=== PATIENT | female | born 1980 | race Caucasian/White ===

== ENCOUNTER 2016-11-25 18:55 | Inpatient (IN) | payer OTHER ==
[2016-11-25] MEDS ORDERED: SODIUM CHLORIDE 0.9% 1,000 ML IV STA ×2 (19:47)
[2016-11-25] MEDS ORDERED: LEVALBUTEROL NEB 1.25 MG/3 ML AMP INHALATION STA (19:47)
[2016-11-25] MEDS ORDERED: methylPREDNISolone SOD SUCCI 125 MG/2 ML VIAL IV STA (19:47)
[2016-11-25] MEDS ORDERED: LEVOFLOXACIN 750MG-D5W PMX 750 MG in DEXTROSE/WATER 1 150ML.BAG IVPB STA (19:47)
[2016-11-25] MEDS ORDERED: IPRATROPIUM 0.5 MG/2.5 ML NEBU INHALATION STA (19:47)
--- NOTE | 2016-11-25 19:53 | ED ---
URI HPI - General Source: patient Mode of arrival: ambulatory Limitations: no limitations <Jose Melendez - Last Filed: 11/25/16 21:42> <Leander Trejo - Last Filed: 11/25/16 22:28> - General Chief Complaint: Upper Respiratory Infection Stated Complaint: LEIGH Time Seen by Provider: 11/25/16 19:43 - History of Present Illness Initial Comments: This 36-year-old white female presents with a complaint of some shortness of breath and cough. This is been present for over 10 days. She denies any actual fever but has had cold sweats. She denies any production with her cough. She normally utilizes tobacco but states that she quit when her current symptoms started. She denies any history of asthma or COPD but has had pneumonia previously. She denies any leg pain or swelling. She does complain of occasional anterior sternal chest pain with cough only. She saw her primary doctor approximately 10 days ago and was placed on an antibiotic as well as some steroid medication. She also was utilizing albuterol breathing treatments 4 times a day. She denies any relief of her symptomatology with this treatment. No other complaints or modifying factors. She does relate that she has a history of factor V Leiden deficiency. (Jose Melendez) - Related Data Home Medications Medication Instructions Recorded Confirmed Albuterol Inhaler [Ventolin Hfa 1 - 2 puff INHALATION RT-Q6H PRN 11/25/16 Inhaler] Albuterol Nebulized [Ventolin 2.5 mg INHALATION RT-TID 11/25/16 11/25/16 Nebulized] Allergies Allergy/AdvReac Type Severity Reaction Status Date / Time Penicillins Allergy Anaphylaxis Verified 11/25/16 19:59 Review of Systems ROS Other: All systems not noted in ROS Statement are negative. <Jose Melendez - Last Filed: 11/25/16 21:42> ROS Other: All systems not noted in ROS Statement are negative. <Leander Trejo - Last Filed: 11/25/16 22:28> ROS Statement: Those systems with pertinent positive or pertinent negative responses have been documented in the HPI. Past Medical History Past Medical History: No Reported History History of Any Multi-Drug Resistant Organisms: None Reported Past Surgical History: Appendectomy, Section, Cholecystectomy Past Psychological History: Anxiety, Panic Disorder Smoking Status: Never smoker Past Alcohol Use History: None Reported Past Drug Use History: None Reported <Jose Melendez - Last Filed: 11/25/16 21:42> General Exam Limitations: no limitations <Jose Melendez - Last Filed: 11/25/16 21:42> <Leander Trejo - Last Filed: 11/25/16 22:28> - General Exam Comments Initial Comments: GENERAL: The patient is well nourished and well hydrated. VITAL SIGNS: Heart rate, blood pressure, respiratory rate reviewed as recorded in nurse's notes. EYES: Pupils are round and reactive. Extraocular movements are intact. No conjunctival / lid redness or swelling. ENT: No external evidence of injury, swelling, or ecchymosis. Airway is patent. Throat is clear. NECK: Nontender. No swelling or evidence of injury. No subcutaneous emphysema. Trachea is midline. No thyroid mass. HEART: Regular rate and rhythm. Good peripheral pulses. LUNGS/CHEST: Frequent cough is noted. Occasional wheezing is noted. No ecchymosis, subcutaneous emphysema, or tenderness. ABDOMEN: Abdomen soft without tenderness. No palpable masses or organomegaly. No peritoneal signs. No abdominal wall swelling or ecchymosis. EXTREMITIES: No extremity tenderness. Normal muscle tone and function. No thoracolumbar tenderness. No leg pain or swelling. NEUROLOGIC: Sensation is grossly intact. Cranial nerve exam reveals face is symmetrical, tongue is midline, speech is clear. SKIN: No abrasions or ecchymosis is noted. No induration or masses noted. PSYCHIATRIC: Alert and oriented. Appropriate behavior and judgment. (Jose Melendez) Medical Decision Making - Lab Data Result diagrams: 11/25/16 20:10 11/25/16 20:10 <Jose Melendez - Last Filed: 11/25/16 21:42> - Lab Data Result diagrams: 11/25/16 20:10 11/25/16 20:10 <Leander Trejo - Last Filed: 11/25/16 22:28> - Medical Decision Making The patient was seen and examined. All diagnostics were reviewed. The EKG shows a sinus tachycardia at a heart rate of 111. There is no acute ST T-wave changes identified. The AL interval is 168, QRS duration is 96, the QTC intervals 456. The laboratory is reviewed and does show a leukocytosis and elevation of the d-dimer. The chest x-ray does not show any acute process. She receives a double Xopenex and Atrovent breathing treatment with some moderate relief. She also received some Solu-Medrol intravenously. She feels improved on recheck. The CT angiogram of the chest is ordered due to the possibility of pulmonary embolism. This is currently pending and final disposition will be passed off to oncoming shift. At this point, it is felt as though the possibility of a pulmonary embolism certainly is plausible as she does have some tachycardia, chest pain, and shortness breath. However, it appears that she does have a degree of bronchospasm and leukocytosis and it is likely possible that she has a bronchitis. (Jose Melendez) - Lab Data Lab Results 11/25/16 11/25/16 11/25/16 Range/Units 20:10 20:10 20:10 WBC 21.0 H (3.8-10.6) k/uL RBC 4.32 (3.80-5.40) m/uL Hgb 14.3 (11.4-16.0) gm/dL Hct 39.9 (34.0-46.0) % MCV 92.4 (80.0-100.0) fL MCH 33.1 (25.0-35.0) pg MCHC 35.8 (31.0-37.0) g/dL RDW 13.7 (11.5-15.5) % Plt Count 341 (150-450) k/uL Neutrophils % 60 % Lymphocytes % 33 % Monocytes % 4 % Eosinophils % 1 % Basophils % 1 % Neutrophils # 12.7 H (1.3-7.7) k/uL Lymphocytes # 7.0 H (1.0-4.8) k/uL Monocytes # 0.8 (0-1.0) k/uL Eosinophils # 0.3 (0-0.7) k/uL Basophils # 0.1 (0-0.2) k/uL Polychromasia Present D-Dimer 0.76 H (<0.60) mg/L FEU Sodium 138 (137-145) mmol/L Potassium 3.9 (3.5-5.1) mmol/L Chloride 106 (98-107) mmol/L Carbon Dioxide 21 L (22-30) mmol/L Anion Gap 11 mmol/L BUN 9 (7-17) mg/dL Creatinine 0.61 (0.52-1.04) mg/dL Est GFR (MDRD) Af Amer >60 (>60 ml/min/1.73 sqM) Est GFR (MDRD) Non-Af >60 (>60 ml/min/1.73 sqM) Glucose 149 H (74-99) mg/dL Calcium 9.7 (8.4-10.2) mg/dL Total Bilirubin 0.4 (0.2-1.3) mg/dL AST 17 (14-36) U/L ALT 33 (9-52) U/L Alkaline Phosphatase 79 (38-126) U/L Total Protein 7.5 (6.3-8.2) g/dL Albumin 4.3 (3.5-5.0) g/dL Disposition <Jose Melendez - Last Filed: 11/25/16 21:42> <Leander Trejo - Last Filed: 11/25/16 22:28> Clinical Impression: Dyspnea, Bronchitis, Bronchospasm, Tachycardia, Chest pain, Elevated d-dimer, Leukocytosis, Pulmonary embolism, Factor V Leiden Disposition: ADMITTED IP TO THIS HOSP Condition: Fair Referrals: Clair Garcia MD [Primary Care Provider] - 1-2 days
[2016-11-25 20:37] LABS: ALT 33 U/L (9-52); AST 17 U/L (14-36); Alkaline Phosphatase 79 U/L (38-126); Anion Gap 11 mmol/L; Basophils # (A) 0.1 k/uL (0-0.2); Basophils % (A) 1 %; Blood Urea Nitrogen 9 mg/dL (7-17); CH 32.3; CHCM 35.1; Calcium 9.7 mg/dL (8.4-10.2); Carbon Dioxide 21 mmol/L (22-30); Chloride 106 mmol/L (98-107); Eosinophils # (A) 0.3 k/uL (0-0.7); Eosinophils % (A) 1 %; Glucose 149 mg/dL (74-99); HCT 39.9 % (34.0-46.0); HDW 2.62; HGB 14.3 gm/dL (11.4-16.0); Luc # (Auto) 0.24; Luc % (Auto) 1; Lymphocytes % (A) 33 %; MCH 33.1 pg (25.0-35.0); MCHC 35.8 g/dL (31.0-37.0); MCV 92.4 fL (80.0-100.0); Mean Platelet Volume 7.4; Monocytes # (A) 0.8 k/uL (0-1.0); Monocytes % (A) 4 %; Neutrophils # (A) 12.7 k/uL (1.3-7.7); Neutrophils % (A) 60 %; Non-African American GFR(MDRD) >60 (>60 ml/min/1.73 sqM); Potassium 3.9 mmol/L (3.5-5.1); RBC 4.32 m/uL (3.80-5.40); RDW 13.7 % (11.5-15.5); Sodium 138 mmol/L (137-145); Total Bilirubin 0.4 mg/dL (0.2-1.3); Total Protein 7.5 g/dL (6.3-8.2); WBC (Perox) 21.07
[2016-11-25 21:02] LABS: Polychromasia Present
--- NOTE | 2016-11-25 21:08 | XR ---
EXAMINATION TYPE: XR chest 2V DATE OF EXAM: 11/25/2016 COMPARISON: 03/21/2015 HISTORY: Shortness of breath TECHNIQUE: Frontal and lateral views of the chest are obtained. FINDINGS: There is no focal air space opacity, pleural effusion, or pneumothorax seen. The cardiac silhouette size is within normal limits. The osseous structures are intact. Previously seen left pe rihilar consolidation has resolved. Cholecystectomy clips are again noted in the right upper quadrant . IMPRESSION: No acute cardiopulmonary process.
[2016-11-25] MEDS ORDERED: RX INFO: IV CONTRAST WAS GIVEN 1 EACH MISC MISCELLANE PRN (21:41)
[2016-11-25] MEDS ORDERED: MORPHINE SULFATE 4 MG/ML SYRINGE IV PRN (22:26)
[2016-11-25] MEDS ORDERED: NITROGLYCERIN SL TABS 0.4 MG TAB SUBLINGUAL PRN (22:26)
[2016-11-25] MEDS ORDERED: HEPARIN SODIUM,PORCINE 5,000 UNIT/ML 1 ML VIAL IV PRN (22:27)
[2016-11-25] MEDS ORDERED: HEPARIN SODIUM,PORCINE 10,000 UNIT/ML 1 ML VIAL IV ONE (22:27)
--- NOTE | 2016-11-25 22:31 | CT ---
EXAM: CT Angiography Chest With Intravenous Contrast CLINICAL HISTORY: Reason: CP and SOB TECHNIQUE: Axial computed tomographic angiography images of the chest with intravenous contrast using pulmonary embolism protocol. DLP is 463.50 mGy-cm. This CT exam was performed using one or more of the following dose reduction techniques: automated exposure control, adjustment of the mA and/or kV according to patient size, and/or use of iterative reconstruction technique. MIP reconstructed images were created and reviewed. COMPARISON: Chest x-ray from earlier the same day. FINDINGS: Suboptimal bolus timing results in suboptimal opacification of the pulmonary arterial system, which limits evaluation. Pulmonary arteries: Within this limitation, a filling defect is seen within a segmental pulmonary artery supplying the left lower lobe extending into a subsegmental artery (as seen on series 4, image 65). This finding likely represents a pulmonary embolism. Somewhat mosaic attenuation of the left lower lobe is seen, more so when compared to the right lower lobe, which can be seen in occlusive vascular disease. Alternatively, this may represent air trapping. Aorta: No acute findings. No thoracic aortic aneurysm. Lungs: See above. No consolidations. Mild linear atelectatic changes are seen throughout both lungs. Pleural space: Unremarkable. No significant effusion. No pneumothorax. Heart: Unremarkable. No cardiomegaly. No significant pericardial effusion. No evidence of RV dysfunction. Bones/joints: No acute fracture. No dislocation. Soft tissues: Unremarkable. Lymph nodes: Unremarkable. No enlarged lymph nodes. Gallbladder and bile ducts: Patient status post cholecystectomy. IMPRESSION: 1. Filling defect within a segmental pulmonary artery supplying the left lower lobe extending into a subsegmental artery. This finding likely represents a pulmonary embolism. 2. Somewhat mosaic attenuation of the left lower, more so when compared to the right lower lobe, which can be seen in occlusive vascular disease. Alternatively, this may represent air trapping. [employer] 11/25/16 22:23 Call Doctor Regarding Pulmonary Embolism, called Dr. Goodwin on 11/25 22:22 (-04:00)
[2016-11-25] MEDS: HEPARIN SODIUM,PORCINE/D5W PMX 25,000 UNIT in DEXTROSE/WATER 1 500ML.BAG IV SCH (22:52)
[2016-11-26 00:01] VITALS: RESP 18; BMI 38.9
[2016-11-26 00:29] LABS: Creatine Kinase 51 U/L (30-135)
[2016-11-26] MEDS ORDERED: ACETAMINOPHEN TAB 325 MG TAB PO PRN (00:30)
[2016-11-26 00:42] LABS: Creatine Kinase MB <0.2 ng/mL (0.0-2.4); Troponin I <0.012 ng/mL (0.000-0.034)
[2016-11-26 04:50] LABS: Basophils % (A) 0 %; CH 33.1; CHCM 34.4; Eosinophils # (A) 0.1 k/uL (0-0.7); Eosinophils % (A) 0 %; HCT 41.8 % (34.0-46.0); HDW 2.59; HGB 14.1 gm/dL (11.4-16.0); Luc # (Auto) 0.05; Luc % (Auto) 0; Lymphocytes # (A) 2.3 k/uL (1.0-4.8); Lymphocytes % (A) 12 %; MCH 32.6 pg (25.0-35.0); MCHC 33.7 g/dL (31.0-37.0); MCV 96.8 fL (80.0-100.0); Mean Platelet Volume 7.7; Monocytes # (A) 0.2 k/uL (0-1.0); Monocytes % (A) 1 %; Neutrophils # (A) 16.8 k/uL (1.3-7.7); Neutrophils % (A) 86 %; RBC 4.32 m/uL (3.80-5.40); RDW 14.6 % (11.5-15.5); WBC 19.5 k/uL (3.8-10.6)
[2016-11-26 05:01] LABS: Partial Thromboplastin Time 70.6 sec (22.0-30.0); Prothrombin Time 10.4 sec (9.0-12.0)
[2016-11-26 05:13] LABS: Creatine Kinase 52 U/L (30-135)
[2016-11-26 05:24] LABS: Cholesterol 231 mg/dL (<200); HDL Cholesterol 44 mg/dL (40-60)
[2016-11-26 05:26] LABS: Creatine Kinase MB 0.3 ng/mL (0.0-2.4); Troponin I <0.012 ng/mL (0.000-0.034)
--- NOTE | 2016-11-26 08:30 | US ---
EXAMINATION TYPE: US venous doppler duplex LE DATE OF EXAM: 11/26/2016 7:52 AM COMPARISON: NONE CLINICAL HISTORY: DVT. Wheezing SIDE PERFORMED: Bilateral TECHNIQUE: The lower extremity deep venous system is examined utilizing real time linear array sonog russell with graded compression, doppler sonography and color-flow sonography. VESSELS IMAGED: External Iliac Vein (EIV) Common Femoral Vein Deep Femoral Vein Greater Saphenous Vein * Femoral Vein Popliteal Vein Small Saphenous Vein * Proximal Calf Veins (* superficial vessels) Right Leg: Negative for DVT Left Leg: Negative for DVT IMPRESSION: 1. No diagnostic evidence of DVT.
[2016-11-26] MEDS: HEPARIN SODIUM,PORCINE/D5W PMX 25,000 UNIT in DEXTROSE/WATER 1 500ML.BAG IV SCH (11:32)
--- NOTE | 2016-11-26 12:39 | P.HPIM ---
History of Present Illness 36-year-old pleasant female came in with complaints of shortness of breath denied any chest pain. Patient had history of asthma still smokes and patient was wheezing quite a bit. Patient the at the took antibiotics and the for 5 days that his azithromycin and also systemic steroids as an outpatient which did not help her because of which patient came to ER. And patient had a CAT scan of the chest which showed some questionable pulmonary embolism. I reviewed the CAT scan which is not impressive for pulmonary embolism because of which I'm consulted pulmonary for the second opinion. I believe patient has asthma exacerbation for which patient can be discharged on systemic steroids. Regarding her asthma exacerbation of symptoms significantly improved patient is comparing of cough without any sputum production. Patient still has minimal wheeze upon exam. If per neurology believes patient had a pulmonary embolism patient will be discharged on Xarelto patient does have history of factor V Leyden deficiency. Patient denied any recent surgery or any cancer. Review of Systems REVIEW OF SYSTEMS: CONSTITUTIONAL: No fever, no malaise, no fatigue. HEENT: No recent visual problems or hearing problems. Denied any sore throat. CARDIOVASCULAR: No chest pain, orthopnea, PND, no palpitations, no syncope. PULMONARY: As mentioned in HPI GASTROINTESTINAL: No diarrhea, no nausea, no vomiting, no abdominal pain. Normoactive bowel sounds. NEUROLOGICAL: No headaches, no weakness, no numbness. HEMATOLOGICAL: Denies any bleeding or petechiae. GENITOURINARY: Denies any burning micturition, frequency, or urgency. MUSCULOSKELETAL/RHEUMATOLOGICAL: Denies any joint pain, swelling, or any muscle pain. ENDOCRINE: Denies any polyuria or polydipsia. The rest of the 14-point review of systems is negative. Past Medical History Past Medical History: No Reported History History of Any Multi-Drug Resistant Organisms: None Reported Past Surgical History: Appendectomy, Section, Cholecystectomy Past Anesthesia/Blood Transfusion Reactions: No Reported Reaction Past Psychological History: Anxiety, Panic Disorder Smoking Status: Former smoker Past Alcohol Use History: None Reported Past Drug Use History: None Reported - Past Family History Mother Family Medical History: Diabetes Mellitus, Deep Vein Thrombosis (DVT), Hypertension, Pulmonary Embolus Father History Unknown: Yes Medications and Allergies Home Medications Medication Instructions Recorded Confirmed Type Albuterol Inhaler [Ventolin Hfa 1 - 2 puff INHALATION RT-Q6H PRN 11/25/16 History Inhaler] Albuterol Nebulized [Ventolin 2.5 mg INHALATION RT-TID 11/25/16 11/25/16 History Nebulized] Ranitidine HCl [Zantac] 150 mg PO BID #20 tab 11/26/16 Rx predniSONE 10 mg PO DAILY #30 tab 11/26/16 Rx Allergies Allergy/AdvReac Type Severity Reaction Status Date / Time Penicillins Allergy Anaphylaxis Verified 11/25/16 19:59 Physical Exam Vitals: Vital Signs Temp Pulse Pulse Pulse Resp BP BP 11/26/16 12:12 97.8 F 97 101 H 16 120/75 11/26/16 08:27 97.7 F 99 101 H 16 133/75 11/26/16 03:06 98.4 F 101 H 18 127/73 11/26/16 00:00 18 11/25/16 23:20 98.2 F 107 H 18 131/77 11/25/16 22:54 98.3 F 120 H 16 147/78 11/25/16 21:42 112 H 18 137/79 11/25/16 20:32 114 H 11/25/16 20:17 114 H 11/25/16 20:16 114 H 11/25/16 20:06 117 H 11/25/16 19:23 20 11/25/16 19:11 97.9 F 120 H 20 138/90 Pulse Ox 11/26/16 12:12 94 L 11/26/16 08:27 97 11/26/16 03:06 95 11/26/16 00:00 11/25/16 23:20 97 11/25/16 22:54 94 L 11/25/16 21:42 98 11/25/16 20:32 11/25/16 20:17 11/25/16 20:16 11/25/16 20:06 11/25/16 19:23 11/25/16 19:11 95 Intake and Output 11/25/16 11/26/16 11/26/16 22:59 06:59 14:59 Intake Total 984.677 338.309 Balance 984.677 338.309 Intake: Intake, IV Titration 984.677 220.309 Amount Heparin Sodium,Porcine/ 234.677 220.309 D5w Pmx 25,000 unit In Dextrose/Water 1 500ml. bag @ 18 UNITS/KG/HR 35. 92 mls/hr IV .[id number] ROSE Rx#:[id number] Levofloxacin 750Mg-D5w 150 Pmx 750 mg In Dextrose/ Water 1 150ml.bag @ 100 mls/hr IVPB ONCE STA Rx#: [id number] Sodium Chloride 0.9% 1, 600 000 ml @ 100 mls/hr IV . Q10H STA Rx#:[id number] Oral 118 Other: # Voids 2 Weight 99.79 kg 100.9 kg PHYSICAL EXAMINATION: GENERAL: The patient is alert and oriented x3, not in any acute distress. Well developed, well nourished. HEENT: Pupils are round and equally reacting to light. EOMI. No scleral icterus. No conjunctival pallor. Normocephalic, atraumatic. No pharyngeal erythema. No thyromegaly. CARDIOVASCULAR: S1 and S2 present. No murmurs, rubs, or gallops. PULMONARY: Minimal expiratory wheezing was appreciated no crackles are appreciated. ABDOMEN: Soft, nontender, nondistended, normoactive bowel sounds. No palpable organomegaly. MUSCULOSKELETAL: No joint swelling or deformity. EXTREMITIES: No cyanosis, clubbing, or pedal edema. NEUROLOGICAL: Gross neurological examination did not reveal any focal deficits. SKIN: No rashes. Results CBC & Chem 7: 11/26/16 04:39 11/25/16 20:10 Labs: Abnormal Lab Results - Last 24 Hours (Table) 11/25/16 11/25/16 11/25/16 Range/Units 20:10 20:10 20:10 WBC 21.0 H (3.8-10.6) k/uL Neutrophils # 12.7 H (1.3-7.7) k/uL Lymphocytes # 7.0 H (1.0-4.8) k/uL APTT (22.0-30.0) sec D-Dimer 0.76 H (<0.60) mg/L FEU Carbon Dioxide 21 L (22-30) mmol/L Glucose 149 H (74-99) mg/dL Triglycerides (<150) mg/dL Cholesterol (<200) mg/dL LDL Cholesterol, Calc (0-99) mg/dL 11/26/16 11/26/16 11/26/16 Range/Units 04:39 04:39 04:39 WBC 19.5 H (3.8-10.6) k/uL Neutrophils # 16.8 H (1.3-7.7) k/uL Lymphocytes # (1.0-4.8) k/uL APTT 70.6 H (22.0-30.0) sec D-Dimer (<0.60) mg/L FEU Carbon Dioxide (22-30) mmol/L Glucose (74-99) mg/dL Triglycerides 251 H (<150) mg/dL Cholesterol 231 H (<200) mg/dL LDL Cholesterol, Calc 137 H (0-99) mg/dL Thrombosis Risk Factor Assmnt - Choose All That Apply Any of the Below Risk Factors Present?: Yes Each Factor Represents 1 point: Medical pt on bed rest, Obesity (BMI >25) Other Risk Factors: Yes Each Risk Factor Represents 3 Points: Family history of DVT/PE Thrombosis Risk Factor Assessment Total Risk Factor Score: 5 Thrombosis Risk Factor Assessment Level: High Risk Assessment and Plan Plan: #1 acute hypoxic respiratory failure: Secondary to acute asthma exacerbation patient probably has chronic intermittent asthma. Regarding her pulmonary embolism evaluation further management as mentioned in the HPI. #2 tachycardia: Secondary to hypoxemia which improved with treatment of asthma. #3 leukocytosis secondary to systemic strides she was receiving as an outpatient. 4 hypertriglyceridemia and hyperlipidemia: Patient will be started on statin at counseling was provided. #5 factor V Leyden deficiency: Follow-up with oncology as an outpatient.
--- NOTE | 2016-11-26 12:47 | P.DS ---
Providers Date of admission: 11/25/16 22:26 Attending physician: Arnoldo Bullock Consults: 11/26/16 11:11 Consult Physician Routine Consulting Provider: Jenn Starks Consult Reason/Comments: PE Do you want consulting provider notified?: Yes Primary care physician: Clair Garcia Hospital Course: Please refer to my HPI Patient Condition at Discharge: Fair Plan - Discharge Summary New Discharge Prescriptions: New predniSONE 10 mg PO DAILY #30 tab Ranitidine HCl [Zantac] 150 mg PO BID #20 tab Atorvastatin Calcium [Lipitor] 40 mg PO ACHS #30 tablet No Action Albuterol Nebulized [Ventolin Nebulized] 2.5 mg INHALATION RT-TID Albuterol Inhaler [Ventolin Hfa Inhaler] 1 - 2 puff INHALATION RT-Q6H PRN PRN Reason: Shortness Of Breath Discharge Medication List Albuterol Inhaler [Ventolin Hfa Inhaler] 1 - 2 puff INHALATION RT-Q6H PRN [History] Albuterol Nebulized [Ventolin Nebulized] 2.5 mg INHALATION RT-TID 11/25/16 [ History] Atorvastatin Calcium [Lipitor] 40 mg PO ACHS #30 tablet 11/26/16 [Rx] Ranitidine HCl [Zantac] 150 mg PO BID #20 tab 11/26/16 [Rx] predniSONE 10 mg PO DAILY #30 tab 11/26/16 [Rx] Follow up Appointment(s)/Referral(s): Clair Garcia MD [Primary Care Provider] - 3 Days Discharge Disposition: HOME SELF-CARE
--- NOTE | 2016-11-26 18:48 | ECHOF ---
Referral Reason:pe MEASUREMENTS -------- HEIGHT: 160.0 cm WEIGHT: 100.7 kg BP: 127/73 RVIDd: 2.6 cm (< 3.3) IVSd: 1.2 cm (0.6 - 1.1) LVIDd: 4.2 cm (3.9 - 5.3) LVPWd: 1.1 cm (0.6 - 1.1) IVSs: 1.4 cm LVIDs: 3.1 cm LVPWs: 1.4 cm LAESV Index (A-L): 15.13 ml/m Ao Diam: 3.0 cm (2.0 - 3.7) AV Cusp: 2.2 cm (1.5 - 2.6) MV EXCURSION: 20.586 mm (> 18.000) MV EF SLOPE: 132 mm/s (70 - 150) EPSS: 0.5 cm MV E Moses: 1.01 m/s MV DecT: 254 ms MV A Moses: 0.87 m/s MV E/A Ratio: 1.17 RAP: 5.00 mmHg RVSP: 20.18 mmHg FINDINGS -------- Resting tachycardia (HR>100bpm). This was a technically good study. The left ventricular size is normal. There is borderline concentric left ventricular hypertrophy. Overall left ventricular systolic function is normal with, an EF between 60 - 65 %. The right ventricle is normal in size. Normal LA size by volume 22+/-6 ml/m2. The right atrium is normal in size. The aortic valve is trileaflet and appears structurally normal. The mitral valve leaflets are mildly thickened. The tricuspid valve appears structurally normal. Trace tricuspid regurgitation present. Right ventricular systolic pressure is normal at < 35 mmHg. The pulmonic valve is normal. The aortic root size is normal. IVC Not well visulized. There is no pericardial effusion. CONCLUSIONS -------- 1. Resting tachycardia (HR>100bpm). 2. The mitral valve leaflets are mildly thickened. 3. The tricuspid valve appears structurally normal. 4. Trace tricuspid regurgitation present. 5. Right ventricular systolic pressure is normal at < 35 mmHg. 6. The pulmonic valve is normal. 7. The aortic root size is normal. 8. IVC Not well visulized. 9. There is no pericardial effusion. 10. This was a technically good study. 11. The left ventricular size is normal. 12. There is borderline concentric left ventricular hypertrophy. 13. Overall left ventricular systolic function is normal with, an EF between 60 - 65 %. 14. The right ventricle is normal in size. 15. Normal LA size by volume 22+/-6 ml/m2. 16. The right atrium is normal in size. 17. The aortic valve is trileaflet and appears structurally normal. [employer] PROFESSOR: Nandini Gunderson RDCS
[2016-11-27] MEDS: HEPARIN SODIUM,PORCINE/D5W PMX 25,000 UNIT in DEXTROSE/WATER 1 500ML.BAG IV SCH (02:34)
[2016-11-27 05:34] VITALS: PULSE 88
[2016-11-27 06:43] LABS: CH 32.9; CHCM 34.2; HCT 37.7 % (34.0-46.0); HDW 2.61; HGB 12.7 gm/dL (11.4-16.0); INR 0.9 (<1.2); MCH 32.6 pg (25.0-35.0); MCHC 33.7 g/dL (31.0-37.0); MCV 96.7 fL (80.0-100.0); Mean Platelet Volume 8.2; Partial Thromboplastin Time 71.7 sec (22.0-30.0); Prothrombin Time 9.7 sec (9.0-12.0); RDW 14.4 % (11.5-15.5); WBC 20.1 k/uL (3.8-10.6)
[2016-11-27 08:33] LABS: Add Differential Manual Differential
[2016-11-27 08:37] LABS: Nucleated Red Blood Cells 0 /100 WBC (0-0)
[2016-11-27 08:43] LABS: Total Cells Counted 100
[2016-11-27] MEDS ORDERED: RX INFO: IV CONTRAST WAS GIVEN 1 EACH MISC MISCELLANE PRN (09:20)
[2016-11-27 10:13] LABS: Anion Gap 11 mmol/L; Blood Urea Nitrogen 8 mg/dL (7-17); Calcium 8.6 mg/dL (8.4-10.2); Carbon Dioxide 21 mmol/L (22-30); Chloride 108 mmol/L (98-107); Glucose 132 mg/dL (74-99); Non-African American GFR(MDRD) >60 (>60 ml/min/1.73 sqM); Potassium 3.8 mmol/L (3.5-5.1); Sodium 140 mmol/L (137-145)
[2016-11-27 10:40] LABS: Manual Review Performed
[2016-11-27 10:42] LABS: RBC Morphology Normal
--- NOTE | 2016-11-27 11:01 | P.CNPUL ---
History of Present Illness Consult date: 11/27/16 Reason for consult: dyspnea History of present illness: A 36-year-old female patient, known history of factor V Leyden, heterozygous state, coming in for some increased shortness of breath, cough and chest congestion. She is a chronic smoker in she has episodes of bronchitis pH she saw her primary care physician for increased cough and congestion and some wheezing. She was not improving and she had already received Zithromax on outpatient basis along with some systemic steroids. Her primary care physician advised the patient coming into the hospital. CAT scan of the chest was done and this was a CTA protocol which was of a poor contrast. The report came back as positive for pulmonary embolism to the left lower lobe pulmonary artery branches. However, clinically patient's presentation was not consistent. D- dimer was nonelevated. Doppler of the lower extremities was negative. Echocardiogram showed no significant pulmonary hypertension. No hemoptysis. No pleurisy. She was started on IV heparin. Primary consultation was requested. The patient has never had any personal history of PE. She has seen Dr. Monahan from hematology regarding affective 5 Leyden and she was reassured that she did not require any anticoagulation the past knowing that she did not have any events. No recent surgeries. No history of any malignancy. She is obese however she is quite active. Review of Systems REVIEW OF SYSTEMS: CONSTITUTIONAL: No fever, no malaise, no fatigue. HEENT: No recent visual problems or hearing problems. Denied any sore throat. CARDIOVASCULAR: No chest pain, orthopnea, PND, no palpitations, no syncope. PULMONARY: As mentioned in HPI GASTROINTESTINAL: No diarrhea, no nausea, no vomiting, no abdominal pain. Normoactive bowel sounds. NEUROLOGICAL: No headaches, no weakness, no numbness. HEMATOLOGICAL: Denies any bleeding or petechiae. GENITOURINARY: Denies any burning micturition, frequency, or urgency. MUSCULOSKELETAL/RHEUMATOLOGICAL: Denies any joint pain, swelling, or any muscle pain. ENDOCRINE: Denies any polyuria or polydipsia. The rest of the 14-point review of systems is negative. Past Medical History Past Medical History: No Reported History Additional Past Medical History / Comment(s): Obesity, factor V Leyden/ heterozygous state, smoker, hyperlipidemia History of Any Multi-Drug Resistant Organisms: None Reported Past Surgical History: Appendectomy, Section, Cholecystectomy Past Anesthesia/Blood Transfusion Reactions: No Reported Reaction Past Psychological History: Anxiety, Panic Disorder Smoking Status: Former smoker Past Alcohol Use History: None Reported Past Drug Use History: None Reported - Past Family History Mother Family Medical History: Diabetes Mellitus, Deep Vein Thrombosis (DVT), Hypertension, Pulmonary Embolus Father History Unknown: Yes Medications and Allergies Home Medications Medication Instructions Recorded Confirmed Type Albuterol Inhaler [Ventolin Hfa 1 - 2 puff INHALATION RT-Q6H PRN 11/25/16 History Inhaler] Albuterol Nebulized [Ventolin 2.5 mg INHALATION RT-TID 11/25/16 11/25/16 History Nebulized] Atorvastatin Calcium [Lipitor] 40 mg PO ACHS #30 tablet 11/26/16 Rx Ranitidine HCl [Zantac] 150 mg PO BID #20 tab 11/26/16 Rx predniSONE 10 mg PO DAILY #30 tab 11/26/16 Rx Allergies Allergy/AdvReac Type Severity Reaction Status Date / Time Penicillins Allergy Anaphylaxis Verified 11/25/16 19:59 Physical Exam Vitals: Vital Signs Temp Pulse Pulse Resp BP Pulse Ox 11/27/16 07:42 98.2 F 88 16 97/66 95 11/27/16 04:00 98.1 F 88 18 105/71 94 L 11/27/16 00:00 98.4 F 94 18 125/73 95 11/26/16 20:00 98.2 F 97 18 115/66 95 11/26/16 16:00 97.8 F 99 88 16 109/61 97 11/26/16 12:12 97.8 F 97 101 H 16 120/75 94 L Intake and Output 11/26/16 11/27/16 11/27/16 22:59 06:59 14:59 Intake Total 200 652.66 118 Balance 200 652.66 118 Intake: Intake, IV Titration 652.66 Amount Heparin Sodium,Porcine/ 652.66 D5w Pmx 25,000 unit In Dextrose/Water 1 500ml. bag @ 18 UNITS/KG/HR 35. 92 mls/hr IV .[id number] [facility] Rx#:[id number] Oral 200 118 Other: # Voids 2 2 Weight 101.4 kg Gen. appearance the patient is calm and comfortable and she is not in acute distress. Head is atraumatic normocephalic. Neck is supple and there is no JVDs no goiter no neck masses. Lungs are diminished and there are some scattered external wheezes throughout the lung yuen bilaterally.Cardiac exam revealed the PMI to be normally situated and sized. The rhythm was regular and no extrasystoles were noted during several minutes of auscultation. The first and second heart sounds were normal and physiologic splitting of the second heart sound was noted. There were no murmurs, rubs, clicks, or gallops.Abdominal exam revealed normal bowel sounds. The abdomen was soft, non- tender, and without masses, organomegaly, or appreciable enlargement of the abdominal aorta.Examination of the extremities revealed easily palpable radial, femoral and pedal pulses. There was no cyanosis, clubbing or edema. Skin is within normal limits and there is no ulcers or wounds or cellulitis. Skeletal examination is within normal without any joint deformities or kyphoscoliosis. Neuro exam is or 83 and the patient has no focal neurological deficit and the cranial nerves are intact. Results - Laboratory Findings CBC and BMP: 11/27/16 05:32 11/27/16 05:32 PT/INR, D-dimer PT 9.7 sec (9.0-12.0) 11/27/16 05:32 INR 0.9 (<1.2) 11/27/16 05:32 D-Dimer 0.76 mg/L FEU (<0.60) H 11/25/16 20:10 Abnormal lab findings: Abnormal Labs 11/25/16 11/25/16 11/25/16 20:10 20:10 20:10 WBC 21.0 H Neutrophils # 12.7 H Lymphocytes # 7.0 H Lymphocytes # (Manual) APTT D-Dimer 0.76 H Chloride Carbon Dioxide 21 L Glucose 149 H Triglycerides Cholesterol LDL Cholesterol, Calc 11/26/16 11/26/16 11/26/16 04:39 04:39 04:39 WBC 19.5 H Neutrophils # 16.8 H Lymphocytes # Lymphocytes # (Manual) APTT 70.6 H D-Dimer Chloride Carbon Dioxide Glucose Triglycerides 251 H Cholesterol 231 H LDL Cholesterol, Calc 137 H 11/27/16 11/27/16 11/27/16 05:32 05:32 05:32 WBC 20.1 H Neutrophils # Lymphocytes # Lymphocytes # (Manual) 12.46 H APTT 71.7 H D-Dimer Chloride 108 H Carbon Dioxide 21 L Glucose 132 H Triglycerides Cholesterol LDL Cholesterol, Calc - Diagnostic Findings CT scan - chest: image reviewed Assessment and Plan Plan: Assessment 1 acute shortness of breath most likely related to bronchitis and possibly with an underlying asthmatic component/COPD. Pulmonary embolism is doubtful. I cannot rely on the CAT scan findings knowing that this was suboptimal contrast uptake within the pulmonary artery branches especially at the secondary and tertiary levels. 2 factor V Leyden, heterozygous state 3 no personal history of DVT or pulmonary embolism 4 obesity 5 hyperlipidemia 6 family history of DVT. Plan Continued IV heparin. Repeat a CT angios the chest. If negative the patient will be discharged home on no anticoagulants. Meanwhile, she would benefit from another prednisone burst taper to be given outpatient basis regarding her acute bronchitis, and I would also give her a course of Levaquin 500 milligrams by mouth for the next 5 days at a time of discharge. It final decision on discharge were made based on the results of the CT angios the chest. Smoking cessation counseling was done. We'll follow.
--- NOTE | 2016-11-27 11:31 | CT ---
EXAMINATION TYPE: CT chest angio for PE DATE OF EXAM: 11/27/2016 COMPARISON: 11/25/2016 HISTORY: Patient complains of recent diagnosis of pneumonia. Patient denies chest complaints at time of study. CT DLP: 370.9 mGycm CONTRAST: CT chest with contrast and 3D reconstruction with MIP imaging is performed with IV Contrast, patient injected with 100 mL of Omnipaque 350. Contrast-enhanced CT of the chest was performed through the course of the pulmonary arteries with robin g and mediastinal window settings submitted. 3D reconstruction with MIP imaging was also performed. PULMONARY ARTERIES: The pulmonary arteries and their major tributaries are patent. Previously noted subtle area of possible filling defect left lower lobe segmental branch not reproduced at this time. I do not see evidence for sizable filling defect to suggest pulmonary embolic process. LUNGS: Vague areas of patchy infiltrate within the left upper lobe suspicious for pneumonia. Addition al areas about the right perihilar and right lower lobe regions. No pulmonary nodule or mass is detec fermín. No pleural effusion. MEDIASTINUM: Thoracic aorta is of normal caliber . The heart is not enlarged. No evidence for media stinal mass. No mediastinal lymph nodes greater than 1cm. HILAR STRUCTURES: No evidence for mass. No hilar lymph nodes greater than 1 cm. UPPER ABDOMEN: No significant abnormality is seen. IMPRESSION: 1. No evidence for Pulmonary embolism at this time. 2. Correlate for mild pneumonia.
--- NOTE | 2016-11-27 11:39 | P.DS ---
Providers Date of admission: 11/25/16 22:26 Attending physician: Arnoldo Bullock Consults: 11/26/16 11:11 Consult Physician Routine Consulting Provider: Jenn Starks Consult Reason/Comments: PE Do you want consulting provider notified?: Yes Primary care physician: Clair Garcia [facility] Course: Patient with factor V Leyden deficiency came in with shortness of breath underwent CAT scan of the chest was suspicious for PE as per the radiologist's reading but reviewed the CAT scan with the hydraulic chair assembler and we do not believe patient has PE because of which pulmonology is recommending a repeat CAT scan if that is negative patient will be discharged without any anticoagulation. Patient has asthma exacerbation which improved at this point of time. PHYSICAL EXAMINATION: GENERAL: The patient is alert and oriented x3, not in any acute distress. Well developed, well nourished. HEENT: Pupils are round and equally reacting to light. EOMI. No scleral icterus. No conjunctival pallor. Normocephalic, atraumatic. No pharyngeal erythema. No thyromegaly. CARDIOVASCULAR: S1 and S2 present. No murmurs, rubs, or gallops. PULMONARY: Chest is clear to auscultation, no wheezing or crackles. ABDOMEN: Soft, nontender, nondistended, normoactive bowel sounds. No palpable organomegaly. MUSCULOSKELETAL: No joint swelling or deformity. EXTREMITIES: No cyanosis, clubbing, or pedal edema. NEUROLOGICAL: Gross neurological examination did not reveal any focal deficits. SKIN: No rashes. #1 acute hypoxic respiratory failure: Secondary to acute asthma exacerbation patient probably has chronic intermittent asthma. Regarding her pulmonary embolism evaluation further management as mentioned in the HPI. #2 tachycardia: Secondary to hypoxemia which improved with treatment of asthma. #3 leukocytosis secondary to systemic steroids she was receiving as an outpatient. 4 hypertriglyceridemia and hyperlipidemia: Patient will be started on statin at counseling was provided. #5 factor V Leyden deficiency: Follow-up with oncology as an outpatient. Patient Condition at Discharge: Fair Plan - Discharge Summary New Discharge Prescriptions: New predniSONE 10 mg PO DAILY #30 tab Ranitidine HCl [Zantac] 150 mg PO BID #20 tab Atorvastatin Calcium [Lipitor] 40 mg PO ACHS #30 tablet No Action Albuterol Nebulized [Ventolin Nebulized] 2.5 mg INHALATION RT-TID Albuterol Inhaler [Ventolin Hfa Inhaler] 1 - 2 puff INHALATION RT-Q6H PRN PRN Reason: Shortness Of Breath Discharge Medication List Albuterol Inhaler [Ventolin Hfa Inhaler] 1 - 2 puff INHALATION RT-Q6H PRN [History] Albuterol Nebulized [Ventolin Nebulized] 2.5 mg INHALATION RT-TID 11/25/16 [ History] Atorvastatin Calcium [Lipitor] 40 mg PO ACHS #30 tablet 11/26/16 [Rx] Ranitidine HCl [Zantac] 150 mg PO BID #20 tab 11/26/16 [Rx] predniSONE 10 mg PO DAILY #30 tab 11/26/16 [Rx] Follow up Appointment(s)/Referral(s): Clair Garcia MD [Primary Care Provider] - 3 Days (OFFICE IS CLOSED. PLEASE CALL TO MAKE APPOINTMENT.) Patient Instructions/Handouts: Acute Bronchitis (GEN) Activity/Diet/Wound Care/Special Instructions: Lilly script in pharmacy downstairs. Coupon available in chart if Dr. Starks requests for her to take. Discharge Disposition: HOME SELF-CARE
[2016-11-27 11:43] VITALS: BP 115/78; TEMP 97.7
== END 2016-11-27 12:11 | disposition home or self-care (01) | DRG 202 ==
LOC: EC 18:55 → 6SEL 22:26
PROVIDERS: ADMIT Hospitalist; ATTEND Hospitalist
DX: J45.21 Mild intermittent asthma with (acute) exacerbation (principal); J96.01 Acute respiratory failure with hypoxia; D68.51 Activated protein C resistance; E66.9 Obesity, unspecified; E78.1 Pure hyperglyceridemia; E78.5 Hyperlipidemia, unspecified; F17.200 Nicotine dependence, unspecified, uncomplicated; F41.0 Panic disorder [episodic paroxysmal anxiety]; Z79.899 Other long term (current) drug therapy; Z82.49 Family history of ischemic heart disease and other diseases of the circulatory system; Z88.0 Allergy status to penicillin
CPT/HCPCS: 36415; 71020; 71275; 80048; 80053; 80061; 82550; 82553; 84484; 85025; 85379; 85610; 85730; 87040; 93005; 93306; 93970; 94640; 96361; 96365; 96374; 96375; 99285

== ENCOUNTER 2017-03-22 11:04 | Emergency (ER) | payer OTHER ==
[2017-03-22] MEDS ORDERED: KETOROLAC 30 MG/ML 1 ML VIAL IVP STA (11:31)
--- NOTE | 2017-03-22 11:44 | ED ---
Chest Pain HPI - General Chief Complaint: Chest Pain Stated Complaint: Chest Pain Time Seen by Provider: 03/22/17 11:25 Source: patient, RN notes reviewed Mode of arrival: wheelchair Limitations: no limitations - History of Present Illness Initial Comments: This is a 37-year-old female who presents with complaints of the onset of chest pain this morning. She states her around 5 AM 6/10 severity sharp lower midsternal it signoff he gets better with certain positional movements. She also had some heart murmur she has any history of the same. She has any recent lifting coughing sneezing or other symptoms or activities he may have brought on the chest pain. She points to the midsternal costochondral area MD Complaint: chest pain - Related Data Home Medications Medication Instructions Recorded Confirmed ALPRAZolam [Xanax] 0.25 mg PO DAILY PRN 03/22/17 03/22/17 Previous Rx's Medication Instructions Recorded Ibuprofen 800 mg PO Q6HR PRN #20 tablet 03/22/17 Allergies Allergy/AdvReac Type Severity Reaction Status Date / Time Penicillins Allergy Anaphylaxis Verified 03/22/17 11:59 Review of Systems ROS Statement: Those systems with pertinent positive or pertinent negative responses have been documented in the HPI. ROS Other: All systems not noted in ROS Statement are negative. Past Medical History Past Medical History: Pulmonary Embolus (PE) Additional Past Medical History / Comment(s): Obesity, factor V Leyden/ heterozygous state, smoker, hyperlipidemia History of Any Multi-Drug Resistant Organisms: None Reported Past Surgical History: Appendectomy, Section, Cholecystectomy Past Anesthesia/Blood Transfusion Reactions: No Reported Reaction Past Psychological History: Anxiety, Panic Disorder Smoking Status: Former smoker Past Alcohol Use History: None Reported Past Drug Use History: None Reported - Past Family History Mother Family Medical History: Diabetes Mellitus, Deep Vein Thrombosis (DVT), Hypertension, Pulmonary Embolus Father History Unknown: Yes General Exam - General Exam Comments Initial Comments: This is a well-developed well-nourished awake alert oriented 3 female Limitations: no limitations General appearance: alert, anxious Head exam: Present: atraumatic, normocephalic, normal inspection Eye exam: Present: normal appearance, PERRL, EOMI. Absent: scleral icterus, conjunctival injection, periorbital swelling ENT exam: Present: normal exam, mucous membranes moist Neck exam: Present: normal inspection. Absent: tenderness, meningismus, lymphadenopathy Respiratory exam: Present: normal lung sounds bilaterally. Absent: respiratory distress, wheezes, rales, rhonchi, stridor Cardiovascular Exam: Present: normal rhythm, tachycardia, normal heart sounds. Absent: systolic murmur, diastolic murmur, rubs, gallop, clicks GI/Abdominal exam: Present: soft, normal bowel sounds, other (Obese abdomen). Absent: distended, tenderness, guarding, rebound, rigid Extremities exam: Present: normal inspection, full ROM, normal capillary refill. Absent: tenderness, pedal edema, joint swelling, calf tenderness Back exam: Present: normal inspection Neurological exam: Present: alert, oriented X3, CN II-XII intact Psychiatric exam: Present: normal affect, normal mood Skin exam: Present: warm, dry, intact, normal color. Absent: rash Course Vital Signs 03/22/17 03/22/17 11:13 13:42 Temperature 97.7 F Pulse Rate 112 H 90 Respiratory 20 18 Rate Blood Pressure 137/64 127/62 O2 Sat by Pulse 98 95 Oximetry Chest Pain MDM - MDM I did review the imaging and reports no acute findings. Patient is feeling much improved with a long discussion regarding the findings she does have a history of having elevated d-dimer with negative CAT scans. This is more than likely the case today we did discuss this. Patient will be discharged on anti- inflammatory medication she is to follow-up with her doctor and return when necessary Disposition Clinical Impression: Costalchondritis, Chest wall syndrome Disposition: HOME SELF-CARE Condition: Good Instructions: Costochondritis (ED) Prescriptions: Ibuprofen 800 mg PO Q6HR PRN #20 tablet PRN Reason: Pain Referrals: Clair Garcia MD [Primary Care Provider] - 1-2 days
[2017-03-22 11:51] LABS: Basophils # (A) 0.1 k/uL (0-0.2); Basophils % (A) 1 %; Eosinophils # (A) 0.2 k/uL (0-0.7); Eosinophils % (A) 2 %; HCT 40.2 % (34.0-46.0); HGB 13.4 gm/dL (11.4-16.0); Lymphocytes % (A) 28 %; MCH 30.6 pg (25.0-35.0); MCHC 33.2 g/dL (31.0-37.0); MCV 92.3 fL (80.0-100.0); Mean Platelet Volume 7.5; Monocytes # (A) 0.5 k/uL (0-1.0); Monocytes % (A) 4 %; Neutrophils # (A) 6.7 k/uL (1.3-7.7); Neutrophils % (A) 63 %; Platelet Count 319 k/uL (150-450); RBC 4.36 m/uL (3.80-5.40); RDW 14.2 % (11.5-15.5); WBC 10.7 k/uL (3.8-10.6)
[2017-03-22 12:08] LABS: D-Dimer 0.78 mg/L FEU (<0.60); Partial Thromboplastin Time 22.4 sec (22.0-30.0); Prothrombin Time 9.5 sec (9.0-12.0)
[2017-03-22 12:10] LABS: Creatine Kinase 67 U/L (30-135)
[2017-03-22 12:12] LABS: ALT 32 U/L (9-52); AST 24 U/L (14-36); Albumin 4.4 g/dL (3.5-5.0); Alkaline Phosphatase 68 U/L (38-126); Amylase 36 U/L (30-110); Anion Gap 13 mmol/L; Blood Urea Nitrogen 9 mg/dL (7-17); Calcium 10.4 mg/dL (8.4-10.2); Carbon Dioxide 26 mmol/L (22-30); Chloride 101 mmol/L (98-107); Glucose 154 mg/dL (74-99); Lipase 51 U/L (23-300); Magnesium 1.9 mg/dL (1.6-2.3); Potassium 4.5 mmol/L (3.5-5.1); Sodium 140 mmol/L (137-145); Total Bilirubin 0.5 mg/dL (0.2-1.3); Total Protein 7.6 g/dL (6.3-8.2)
[2017-03-22 12:23] LABS: Creatine Kinase MB <0.2 ng/mL (0.0-2.4); Troponin I <0.012 ng/mL (0.000-0.034)
--- NOTE | 2017-03-22 14:16 | XR ---
EXAMINATION TYPE: XR chest 2V DATE OF EXAM: 03/22/2017 HISTORY: Chest Pain. REFERENCE: Previous study dated 11/25/2016. FINDINGS: The lungs remain clear. Pleural spaces are clear. The heart is not enlarged. IMPRESSION: NORMAL CHEST.
[2017-03-22 15:15] VITALS: BP 123/72; PULSE 99; RESP 14; TEMP 98.7
== END 2017-03-22 15:15 | disposition home or self-care (01) ==
LOC: EC 11:04
DX: M94.0 Chondrocostal junction syndrome [Tietze] (principal); E66.9 Obesity, unspecified; Z68.41 Body mass index [BMI] 40.0-44.9, adult; Z87.891 Personal history of nicotine dependence; Z88.0 Allergy status to penicillin
CPT/HCPCS: 36415; 93005; 85379; 83880; 80053; 82150; 82550; 82553; 83690; 83735; 84484; 85025; 85610; 85730; 81025; 71046; 99285; 96374; J1885

== ENCOUNTER → 2022-08-14 | Outpatient (CLI) | payer BC ==
--- NOTE | 2022-08-14 09:15 | XR ---
EXAMINATION TYPE: XR foot complete RT DATE OF EXAM: 08/14/2022 COMPARISON: NONE HISTORY: Pain TECHNIQUE: Three views are submitted. FINDINGS: The osseous structures are intact. There is no acute fracture or dislocation. Joint spaces are p reserved. Small calcaneal spurs. IMPRESSION: 1. No acute fracture or dislocation. If symptoms persist, follow-up exam in 7 to 10 days could be ob tained. 2. Small calcaneal spurs.
== END | disposition home or self-care (01) ==
LOC: RADXRYALE 08:42
PROVIDERS: ATTEND Internal Medicine
DX: M77.31 Calcaneal spur, right foot (principal); M79.671 Pain in right foot

== ENCOUNTER → 2023-12-05 | Outpatient (CLI) | payer BC ==
--- NOTE | 2023-12-05 16:58 | MR ---
EXAMINATION TYPE: MR shoulder LT wo con DATE OF EXAM: 12/05/2023 COMPARISON: None HISTORY: Pain TECHNIQUE: Multiplanar, multisequence imaging of the left shoulder is performed without contrast. FINDINGS: There is moderate to marked osteoarthritic change of the AC joint. There is mild subacromial bursitis . The glenohumeral joint intact. There is no glenohumeral joint effusion. The rotator cuff tendons are intact and there is no rotator cuff tear. There is a small Hill-Sachs defect in the posterolateral humeral head. There is a tear with apparent separation of the anterior inferior cartilaginous labrum with a tear of the anterior inferior glenohumeral ligament. The biceps tendon is normal in signal intensity and position within the bicipital groove and the pete ps anchor is intact. There is no tear of the superior cartilaginous labrum. IMPRESSION: 1. Findings are into question prior anterior shoulder dislocation with small Hill-Sachs defect in the posterolateral humeral head and tear of the anterior-inferior cartilaginous labrum and inferior susan ohumeral ligament. 2. no rotator cuff tear. 3. Moderate to marked osteoarthritic change of the AC joint and mild subacromial bursitis [facility], , 12/05/2023 4:56 PM
== END | disposition home or self-care (01) ==
LOC: RADMRIMAIN 10:32
PROVIDERS: ATTEND Orthopaedic Surgery
DX: M25.512 Pain in left shoulder

== ENCOUNTER → 2023-12-22 | Outpatient (CLI) | payer BC ==
[2023-12-22 15:02] LABS: Basophils # (A) 0.06 X 10*3/uL (0.00-0.10); Basophils % (A) 0.6 %; Eosinophils # (A) 0.23 X 10*3/uL (0.04-0.35); Eosinophils % (A) 2.4 %; HCT 36.9 % (37.2-46.3); HGB 12.5 g/dL (12.0-15.0); Lymphocytes # (A) 4.94 X 10*3/uL (0.90-5.00); Lymphocytes % (A) 51.9 %; MCH 32.2 pg (27.0-32.0); MCHC 33.9 g/dL (32.0-37.0); MCV 95.1 FL (80.0-97.0); Mean Platelet Volume 10.7 FL (9.5-12.2); Monocytes % (A) 6.3 %; NRBC Per 100 WBC 0 X 10*3/uL (0.00-0.01); Neutrophils # (A) 3.67 X 10*3/uL (1.80-7.70); Neutrophils % (A) 38.6 %; Platelet Count 293 X 10*3/uL (140-440); RBC 3.88 X 10*6/uL (4.10-5.20); RDW 12.7 % (11.5-14.5); WBC 9.52 X 10*3/uL (4.50-10.00)
[2023-12-22 15:31] LABS: Anion Gap 10.8 mmol/L (4.00-12.00); Carbon Dioxide 24.2 mmol/L (21.6-31.8); Potassium 4.2 mmol/L (3.5-5.5)
== END | disposition home or self-care (01) ==
LOC: LABPAT 09:44
PROVIDERS: ATTEND Orthopaedic Surgery
DX: Z01.818 Encounter for other preprocedural examination (principal); M75.41 Impingement syndrome of right shoulder
CPT/HCPCS: 36415; 80051; 85025

== ENCOUNTER → 2023-12-26 | Outpatient (CLI) | payer BC ==
--- NOTE | 2023-12-30 10:06 | MM ---
Reason for Exam: Screening (asymptomatic). Patient History: Menarche at age 13. First Full-Term at age 18. Premenopausal. Hormonal Contraceptives for 11 years from age 15 until age 26. Risk Values: Lali 5 year model risk: 0.5%. NCI Lifetime model risk: 7.2%. Tissue Density: The breasts are heterogeneously dense, which may obscure small masses. Findings: Analyzed By CAD. There is no suspicious group of microcalcifications or new suspicious mass in either breast. Overall Assessment: Negative, BI-RAD 1 Management: Screening Mammogram of both breasts in 1 year. . Patient should continue monthly self-breast exams. A clinical breast exam by your physician is recommended on an annual basis. This exam should not preclude additional follow-up of suspicious palpable abnormalities. Note on Lali scores and lifetime risk: 1. A Lali score greater than 3% is considered moderate risk. If this is the case, consider specialist referral to assess eligibility for a risk reducing agent. 2. If overall lifetime risk for the development of breast cancer is 20% or higher, the patient may qualify for future screening with alternating mammogram and breast MRI. [facility], , 12/30/2023 10:04 AM. Electronically signed and approved by: Hari Ramirez M.D. Radiologis
== END | disposition home or self-care (01) ==
LOC: RADMAMWWP 07:27
PROVIDERS: ATTEND Internal Medicine
CPT/HCPCS: 77067

== ENCOUNTER 2023-12-29 10:33 | Day surgery (SDC) | payer BC ==
--- NOTE | 2023-12-28 11:08 | HP ---
HISTORY AND PHYSICAL DATE OF SURGERY: 12/29/2023. HISTORY OF PRESENT ILLNESS: Suzanne Akers is a 43-year-old patient seen with progressive left shoulder pain. We discussed the options regarding treatment. She elected to proceed with left shoulder arthroscopy. Consent was obtained. PAST MEDICAL HISTORY: [id number] diabetes. PAST SURGICAL HISTORY: Appendectomy, section, cholecystectomy. DAILY MEDICATIONS: 1. Alejandra. 2. Motrin. 3. Multivitamin. 4. Ozempic. ALLERGIES: Penicillin. SOCIAL HISTORY: She denies tobacco use. PHYSICAL EVALUATION OF THE LEFT SHOULDER: Flexion is 60 degrees. Abduction is 30 degrees. External rotation is 30 degrees with pain and weakness. Tenderness along the anterolateral acromion, rotator cuff insertion. Impingement positive at 70 degrees. Anterior apprehension sign is positive. Cross-body adduction sign is positive. Drop-arm sign is positive. Distal neurovascular exam is intact. IMAGING STUDIES: Radiographs of the left shoulder revealed a type 2 acromion. Calcific changes consistent with calcific tendinitis and acromioclavicular joint osteoarthritis. MRI of left shoulder revealed a labral tear, Hill-Sachs defect, severe acromioclavicular joint osteoarthritis. IMPRESSION: 1. Left shoulder impingement with labral tear. 2. Left shoulder acromioclavicular joint osteoarthritis. PLAN: Left shoulder arthroscopy with subacromial decompression, labral debridement versus repair, Arianna procedure. MMODL / IJN: [id number] /
[~2023-12-29 10:33] MED LIST: LIDOCAINE 1% (10MG/ML) FOR IV START INTRADERMA PRN; SCOPOLAMINE 1 MG/72 HR PATCH TRANSDERM ONE; droPERidol 5 MG/2 ML VIAL IVP ONE
[2023-12-29] MEDS: IV FLUID CONTINUATION 1,000 ML IV ONE (11:25)
[2023-12-29 11:29] LABS: Glucose,Whole Blood 100 mg/dL (70-110)
[2023-12-29] MEDS: LACTATED RINGERS 1,000 ML IV SCH (11:32)
[2023-12-29] MEDS: ONDANSETRON 4 MG/2 ML VIAL IVP ONE (11:32)
[2023-12-29] MEDS: DEXAMETHASONE SOD PHOSPHATE 4 MG/ML 1 ML VIAL IV ONE (11:32)
[2023-12-29] MEDS: MIDAZOLAM 2 MG/2 ML VIAL IV ONE (11:53)
[2023-12-29] MEDS ORDERED: PROPOFOL 10 MG/ML 20 ML VIAL IV ONE (12:46)
[2023-12-29] MEDS ORDERED: ROPIVACAINE 5 MG/ML 30 ML VIAL ONE (12:46)
[2023-12-29] MEDS ORDERED: SUCCINYLCHOLINE CHLORIDE 200 MG/10 ML VIAL IV ONE (12:46)
[2023-12-29] MEDS ORDERED: fentaNYL (PF) 50 MCG/ML 2 ML AMP ONE (12:46)
[2023-12-29] MEDS ORDERED: DEXAMETHASONE SOD PHOSPHATE 4 MG/ML 1 ML VIAL ONE (12:46)
[2023-12-29] MEDS ORDERED: LIDOCAINE 1% INJ 10MG/ML (20 ML MDV) ONE (12:46)
[2023-12-29] MEDS ORDERED: MIDAZOLAM 2 MG/2 ML VIAL ONE (12:46)
--- NOTE | 2023-12-29 14:25 | P.OP ---
Date of Procedure: 12/29/23 Preoperative Diagnosis: Left shoulder impingement Postoperative Diagnosis: 1. Left shoulder rotator cuff tear 2. Left shoulder impingement 3. Left shoulder superficial labral tear Procedure(s) Performed: 1. Left shoulder arthroscopic rotator cuff repair 2. Left shoulder arthroscopic subacromial decompression 3. Left shoulder arthroscopic debridement labral tear Implants: 1Arthrex 5.5 swivel lock anchor Anesthesia: GETA, regional (Interscalene block) Surgeon: Maicol Ordaz Floorleader #1: Lon Nixon Estimated Blood Loss (ml): 9 Pathology: none sent Condition: stable Disposition: PACU Indications for Procedure: 43-year-old patient seen with progressive left shoulder pain. After having treatment options discussed, she elected to proceed with arthroscopy. Operative Findings: See description of procedure Description of Procedure: Patient underwent an interscalene block by department of anesthesia. The patient was then taken to the operative suite. The patient underwent a general anesthetic by the department of anesthesia. The patient was placed into a lateral position and secured. There was appropriate padding of the bony prominence. Left shoulder was then prepped and draped in normal sterile orthopedic fashion. We placed the extremity in 10 pounds of longitudinal traction. A posterior incision was now made for a posterior working portal site. The trocar and cannula were inserted into the glenohumeral joint. Arthroscopy was initiated. Spinal needle was now inserted anteriorly, to ascertain the anterior working portal site. An incision was now made in that area, a trocar was inserted followed by a probe. There was some superficial tearing of the anterior labrum. The biceps was probed and was found to be stable. The superior labral anchor was stable. There was no significant chondromalacia. I debrided out the superficial labral tear. The residual labrum was probed and was found to be stable. Instruments were now removed from the glenohumeral joint. Utilizing the posterior working portal site, the trocar and cannula were inserted into the subacromial space. Arthroscopy initiated. I made an incision 2 fingerbreadths lateral to the acromion. I introduced my trocar followed by my ArthroCare ablator. I now began ablating thick subacromial bursal tissue, which exposed the undersurface of the anterior acromion. There was diminished subacromial space. There was a very prominent anterior acromion. A motorized bur was introduced and a subacromial decompression was performed. I also excised some osteophytes off the inferior aspect of the distal clavicle. The AC joint was visualized and noted to be mildly arthritic. I turned my attention to the rotator cuff tendon. Upon probing the area they noted a full-thickness tear along with an area of calcification. I debrided out the calcific area. I debrided the tendon tear getting down to stable tendon tissue. The tear measured just over a centimeter and was freely mobile over the footprint. I abraded the footprint with a motorized bur. With the assistance of Marty LUNA I passed 2 Ubretid mattress sutures through good bites of rotator cuff tendon. I partial hole in the footprint area for insertion of an anchor. All 4 limbs of suture were passed through the eyelet of an Arthrex 5.5 swivel lock anchor. I placed the eyelet into the preplanned hole. I held in position while Marty LUNA tensioned all 4 limbs of suture and deployed the anchor with good fixation noted. All residual suture limbs were now clipped. We had good compression of the tendon along the entire footprint. Instruments now removed from the portal sites. All portal sites were approximated with nylon suture. Sterile dressings were applied followed by a shoulder sling. Lon LUNA assisted in all aspects of this case. The patient was awakened, transferred to a bed, and taken to recovery in stable condition.
[2023-12-29 14:32] VITALS: TEMP 97.4
[2023-12-29] MEDS: HYDROmorphone 0.5 MG/0.5 ML SYRINGE IVP PRN (14:34)
--- NOTE | 2023-12-29 14:50 | P.ANPRN ---
Procedure Note - Anesthesia - Nerve Block Performed Left Interscalene Single Time Out Performed: Yes Date of Procedure: 12/29/23 Procedure Start Time: 11:37 Procedure Stop Time: :42 Location of Patient: PreOp Indication: Acute Post-Operative Pain, Requested by Surgeon Sedation Type: Sedate with meaningful contact maintained Preparation: Sterile Prep Position: Supine Needle Types: Pajunk Needle Gauge: 21 Ultrasound used to visualize needle placement: Yes Ultrasound used to observe medication spread: Yes Blood Aspirated: No Pain Paresthesia on Injection Noted: No Resistance on Injection: Normal Image Stored and Saved: Yes Events: Uneventful and Well Tolerated (Ropivacaine 0.5% 20 cc plus dexamethasone 4 mg)
[2023-12-29] MEDS: KETOROLAC 15 MG/ML 1 ML VIAL IVP STA (15:02)
[2023-12-29] MEDS: METOCLOPRAMIDE 5 MG/ML 2 ML VIAL IVP STA (17:51)
[2023-12-29 18:14] VITALS: BP 96/60; PULSE 89; RESP 20
== END 2023-12-29 18:19 | disposition home or self-care (01) ==
LOC: OR 10:33
PROVIDERS: ATTEND Orthopaedic Surgery
CPT/HCPCS: 64415

== ENCOUNTER 2024-05-24 07:58 | Day surgery (SDC) | payer BC ==
[2024-05-20 10:51] VITALS: BMI 27.6
--- NOTE | 2024-05-23 19:08 | HP ---
HISTORY AND PHYSICAL Date of surgery 05/24/2024. HISTORY OF PRESENT ILLNESS: Suzanne Akers is a 44-year-old patient seen with persistent left shoulder stiffness with history of a previous arthroscopy. We discussed options regarding her adhesive capsulitis, she elected to proceed with manipulation under anesthesia, left shoulder steroid injection. Consents were obtained. PAST MEDICAL HISTORY: Hfu-[id number] diabetes. PAST SURGICAL HISTORY: Shoulder arthroscopy. DAILY MEDICATIONS: 1. Ozempic. 2. Multivitamin. 3. Aspirin. ALLERGIES: None reported. SOCIAL HISTORY: She denies tobacco use. PHYSICAL EVALUATION OF THE LEFT SHOULDER: Arthroscopic portal sites appear well healed. Flexion is 130 degrees. Abduction is 90 degrees. External rotation 60 degrees with good strength. RADIOGRAPHS: Previous radiographs of her shoulder revealed stable glenohumeral joint previous acromioplasty. Some residual calcific tendinitis. IMPRESSION: 1. Left shoulder adhesive capsulitis. 2. History of left shoulder arthroscopy with rotator cuff repair. PLAN: Left shoulder manipulation under anesthesia with steroid injection. MMODL / IJN: [id number] /
[~2024-05-24 07:58] MED LIST changes: -SCOPOLAMINE 1 MG/72 HR PATCH TRANSDERM ONE; -droPERidol 5 MG/2 ML VIAL IVP ONE
[2024-05-24] MEDS: IV FLUID CONTINUATION 1,000 ML IV ONE ×2 (08:00→11:09)
[2024-05-24 08:31] LABS: Glucose,Whole Blood 97 mg/dL (70-110)
[2024-05-24 08:32] VITALS: TEMP 98.1
[2024-05-24] MEDS: LACTATED RINGERS 1,000 ML IV SCH (08:36)
[2024-05-24] MEDS: KETOROLAC 15 MG/ML 1 ML VIAL IVP STA (09:07)
[2024-05-24] MEDS ORDERED: PROPOFOL 10 MG/ML 20 ML VIAL IV ONE (09:17)
[2024-05-24] MEDS: BUPIVACAINE (PF) 0.25% 30 ML VIAL INTRAARTIC ONE (09:23)
[2024-05-24] MEDS: HYDROmorphone 0.5 MG/0.5 ML SYRINGE IVP PRN (09:25)
--- NOTE | 2024-05-24 09:25 | P.OP ---
Date of Procedure: 05/24/24 Preoperative Diagnosis: Left shoulder adhesive capsulitis Postoperative Diagnosis: Left shoulder adhesive capsulitis Procedure(s) Performed: Manipulation under anesthesia left shoulder with steroid injection Anesthesia: MAC Surgeon: Maicol Ordaz Estimated Blood Loss (ml): 0 Pathology: none sent Condition: stable Disposition: PACU Indications for Procedure: 44-year-old patient seen with persistent left shoulder he is capsulitis. After discussing treatment options, she elected to proceed with manipulation under anesthesia with steroid injection. Operative Findings: See description of procedure Description of Procedure: Patient was taken to a monitored anesthesia area. She received IV sedation by the department of anesthesia. Once sufficient anesthesia was noted I performed a manipulation of the left shoulder achieving near full range of motion with audible tearing of the adhesions. The anterior aspect of left shoulder was prepped and draped in the normal sterile fashion. I injected a solution of 1 cc Depo-Medrol and 2 cc quarter percent plain Marcaine intra-articular under sterile technique. I now took the shoulder through range of motion again. I applied a sterile Band-Aid. The patient was then awakened having tolerated procedure well.
[2024-05-24] MEDS: methylPREDNISolone ACETATE 80 MG/ML 1 ML VIAL INTRAARTIC STA (09:28)
[2024-05-24 10:24] VITALS: RESP 16
[2024-05-24] MEDS: ONDANSETRON 4 MG/2 ML VIAL IVP STA (10:27)
[2024-05-24 10:42] LABS: Glucose,Whole Blood 168 mg/dL (70-110)
[2024-05-24] MEDS: droPERidol 2.5 MG/ML VIAL IVP ONE (11:09)
[2024-05-24 11:37] VITALS: BP 97/59; PULSE 75
== END 2024-05-24 11:53 | disposition home or self-care (01) ==
LOC: OR 07:58
PROVIDERS: ATTEND Orthopaedic Surgery
DX: M75.02 Adhesive capsulitis of left shoulder (principal); M75.32 Calcific tendinitis of left shoulder; E11.9 Type 2 diabetes mellitus without complications; E78.5 Hyperlipidemia, unspecified; Z79.85 Long-term (current) use of injectable non-insulin antidiabetic drugs; Z79.82 Long term (current) use of aspirin; Z79.899 Other long term (current) drug therapy; Z88.0 Allergy status to penicillin
CPT/HCPCS: 23700; 20610; 81025; J2405; J1885; J2704; J1171; J0665; J1010; J1790